=== PATIENT | female | born 1950 | race Hispanic/Latino ===

== ENCOUNTER 2018-12-09 19:40 | Emergency (ER) | payer OTHER ==
[2018-12-09] MEDS ORDERED: TETANUS/DIPHTHERIA TOXOID [ADULT] 0.5 ML VIAL IM ONE (19:51)
== END 2018-12-09 20:28 | disposition home or self-care (01) ==
LOC: EDH 19:40
DX: S91.312A Laceration without foreign body, left foot, initial encounter (principal); K21.9 Gastro-esophageal reflux disease without esophagitis; W25.XXXA Contact with sharp glass, initial encounter; Y93.01 Activity, walking, marching and hiking; Y92.89 Other specified places as the place of occurrence of the external cause; Y99.8 Other external cause status
CPT/HCPCS: 73630; 90471; 90714

== ENCOUNTER 2021-04-08 10:27 | Observation (INO) | payer OTHER ==
[2021-04-04 12:05] LABS: BASOPHILS % (AUTO) 0.8 % (0.0-5.0); EOSINOPHILS % (AUTO) 1.3 % (0.0-8.0); HEMATOCRIT 38.3 % (36-48); LYMPHOCYTES % (AUTO) 21.6 % (21.0-51.0); MEAN CORPUSCULAR HGB CONC 32.4 g/dL (32.0-36.0); MEAN CORPUSCULAR VOLUME 92.7 fL (79-99); NEUTROPHILS % (AUTO) 68.2 % (40.0-77.0); PLATELET COUNT (AUTO) 226 K/uL (130-400); RED BLOOD CELL COUNT(AUTO) 4.13 MIL/uL (4.00-5.50); RED CELL DISTRIBUTION WIDTH 12.3 % (11.0-15.5); WHITE BLOOD COUNT (AUTO) 7.6 K/uL (4.8-10.8)
[2021-04-04 12:17] LABS: CREATININE 0.6 mg/dL (0.5-1.5)
[2021-04-04 12:30] LABS: INR 0.96 (0.85-1.15); PROTHROMBIN TIME 10.5 SEC (9.6-11.6)
[2021-04-04 12:42] LABS: APPEARANCE,URINE CLOUDY (CLEAR); BILIRUBIN,URINE NEGATIVE (NEGATIVE); COLOR,URINE YELLOW (YELLOW); GLUCOSE, URINE (UA) NEGATIVE (NEGATIVE); KETONES,URINE NEGATIVE (NEGATIVE); LEUKOCYTE ESTERASE ,URINE SMALL (NEGATIVE); NITRATE,URINE POSITIVE (NEGATIVE); OCCULT BLOOD,URINE SMALL (NEGATIVE); PROTEIN,URINE NEGATIVE (NEGATIVE)
[2021-04-04 12:46] LABS: BACTERIA,URINE Many /HPF (None Seen); MUCUS,URINE Rare LPF (None Seen); RBC,URINE 0-1 /HPF (0-1); SQUAMOUS EPITHELIAL CELL,UR Few /HPF (0-2)
[2021-04-05 11:25] VITALS: BP 189/91
[2021-04-08] VITALS (18 sets, daily range): BP systolic 123–158; BP diastolic 56–84
[~2021-04-08] VITALS: Ht 167.6 cm; Wt 95.3 kg
[~2021-04-08 10:27] MED LIST: LISI5TAB21 PO; [UNRECOGNIZED DRUG - OTHER] PO
[2021-04-08] MEDS ORDERED: LACTATED RINGERS 1000ML 1,000 ML IV ONE (11:14)
[2021-04-08] MEDS: CEFAZOLIN SODIUM 1 GM VIAL IVP SCH ×3 (11:41→22:20)
[2021-04-08] MEDS: GENTAMICIN SULFATE 240 MG in 0.9%NACL 100ML 100 ML IV SCH (12:47)
[2021-04-08] MEDS ORDERED: TRANEXAMIC ACID 1000MG/10ML ONE ×3 (16:12→18:58)
[2021-04-08] MEDS ORDERED: CEFAZOLIN SODIUM 1 GM VIAL ONE (16:15)
[2021-04-08] MEDS ORDERED: SUCCINYLCHOLINE CHLORIDE 20 MG/ML 10 ML VIAL ONE (16:23)
[2021-04-08] MEDS ORDERED: MIDAZOLAM HCL 1 MG/ML 2ML VIAL ONE (16:23)
[2021-04-08] MEDS ORDERED: DEXAMETHASONE SOD PHOSPHATE 10MG/ML 1ML VIAL ONE ×2 (16:23→17:39)
[2021-04-08] MEDS ORDERED: LIDOCAINE PF 100MG/5ML (2%) SYRINGE 5ML ONE (16:23)
[2021-04-08] MEDS ORDERED: GLYCOPYRROLATE 1 MG/5 ML SYRINGE ONE (16:23)
[2021-04-08] MEDS ORDERED: ONDANSETRON 4MG INJ ONE (16:24)
[2021-04-08] MEDS ORDERED: NEOSTIGMINE 5MG/5ML SYR IV ONE (16:24)
[2021-04-08] MEDS ORDERED: FENTANYL CITRATE PF 50 MCG/1 ML 2ML VIAL ONE ×2 (16:24→19:01)
[2021-04-08] MEDS ORDERED: ROCURONIUM 10MG/1ML SYR 10 MG/ML ML ONE (16:24)
[2021-04-08] MEDS ORDERED: PROPOFOL 10 MG/ML 20ML VIAL IV ONE (16:24)
[2021-04-08] MEDS ORDERED: ROPIVACAINE 0.5% 5MG/ML 30ML IJ ONE (16:27)
[2021-04-08] MEDS ORDERED: MEPERIDINE-PF 25 MG/ML SYG ONE ×2 (16:37→19:41)
[2021-04-08] MEDS ORDERED: POTASSIUM CHLORIDE 10% ELIXIR 20 MEQ/15 ML UDCUP PO PRN (17:30)
[2021-04-08] MEDS ORDERED: DiphenhydrAMINE HCL 50 MG/ML VIAL IVP PRN (17:30)
[2021-04-08] MEDS ORDERED: KCL 20 MEQ ERTAB PO PRN (17:30)
[2021-04-08] MEDS ORDERED: KETOROLAC 15MG/ML VIAL (15MG/ML) IV PRN (17:30)
[2021-04-08] MEDS ORDERED: TEMAZEPAM 15 MG CAPSULE PO PRN (17:30)
[2021-04-08] MEDS ORDERED: CALCIUM CARB 500MG PO PRN (17:30)
[2021-04-08] MEDS ORDERED: POTASSIUM CHLORIDE 20MEQ/100ML 100 ML IV PRN (17:30)
[2021-04-08] MEDS: 0.9%NACL 1000ML 1,000 ML IV SCH (17:30)
[2021-04-08] MEDS ORDERED: OXYCODONE HCL 5 MG TAB PO PRN (17:30)
[2021-04-08] MEDS ORDERED: ONDANSETRON 4MG INJ IVP PRN (17:30)
[2021-04-08] MEDS ORDERED: FERROUS FUMARATE 324 MG TABLET PO PRN (17:30)
[2021-04-08] MEDS ORDERED: LIDOCAINE HCL-MPF 1% 2ML VIAL IV PRN (17:30)
[2021-04-08] MEDS ORDERED: EPHEDRINE SULFATE 50 MG/ML AMPULE ONE (17:42)
[2021-04-08] MEDS ORDERED: CEFAZOLIN SODIUM 1 GM VIAL IRRIG ONE (18:00)
[2021-04-08] MEDS: ACETAMINOPHEN 500 MG TABLET PO SCH (20:58)
[2021-04-08] MEDS: FAMOTIDINE 20MG TAB PO SCH (20:58)
[2021-04-08] MEDS: NITROFURANTOIN MONOHYD/M-CRYST 100 MG CAPSULE PO SCH (21:01)
[2021-04-08] MEDS: ASPIRIN 81 MG EC TAB PO SCH (21:02)
[2021-04-08] MEDS: PREGABALIN 25 MG CAP PO SCH (21:02)
[2021-04-08] MEDS: CELECOXIB 200 MG CAP PO SCH (21:02)
[2021-04-08] MEDS: OXYCODONE HCL 5 MG TAB PO PRN (21:02)
[2021-04-09] MEDS: ACETAMINOPHEN 500 MG TABLET PO SCH ×3 (01:30→17:42)
[2021-04-09] MEDS: 0.9%NACL 1000ML 1,000 ML IV SCH ×2 (03:54→13:30)
[2021-04-09 04:49] VITALS: BP 145/75
[2021-04-09 04:53] LABS: HEMATOCRIT 34.4 % (36-48); MEAN CORPUSCULAR HEMOGLOBIN 29.7 pg (27.0-33.0); MEAN CORPUSCULAR HGB CONC 32.8 g/dL (32.0-36.0); MEAN CORPUSCULAR VOLUME 90.5 fL (79-99); RED BLOOD CELL COUNT(AUTO) 3.8 MIL/uL (4.00-5.50); WHITE BLOOD COUNT (AUTO) 11.6 K/uL (4.8-10.8)
[2021-04-09 05:03] LABS: CREATININE 0.6 mg/dL (0.5-1.5)
[2021-04-09] MEDS: CEFAZOLIN SODIUM 1 GM VIAL IVP SCH (05:59)
[2021-04-09] MEDS: GENTAMICIN SULFATE 240 MG in 0.9%NACL 100ML 100 ML IV SCH (06:01)
[2021-04-09 08:07] VITALS: BP 160/70
[2021-04-09] MEDS: OXYCODONE HCL 5 MG TAB PO PRN ×2 (08:16→12:41)
[2021-04-09 10:42] VITALS: BP 146/79
[2021-04-09] MEDS: PREGABALIN 25 MG CAP PO SCH ×2 (11:25→21:45)
[2021-04-09] MEDS: ASPIRIN 81 MG EC TAB PO SCH ×2 (11:25→21:45)
[2021-04-09] MEDS: FAMOTIDINE 20MG TAB PO SCH ×2 (11:25→21:45)
[2021-04-09] MEDS: NITROFURANTOIN MONOHYD/M-CRYST 100 MG CAPSULE PO SCH ×2 (11:25→21:45)
[2021-04-09] MEDS: CELECOXIB 200 MG CAP PO SCH ×2 (11:26→21:45)
[2021-04-09] MEDS: POLYETHYLENE GLYCOL 3350 17 GM POWD.PACK PO SCH (11:26)
[2021-04-09 15:26] VITALS: BP 143/68
[2021-04-09] MEDS: TRAMADOL HCL 50 MG TABLET PO PRN (15:54)
[2021-04-09 20:32] VITALS: BP 110/52
[2021-04-09 23:24] VITALS: BP 120/55
[2021-04-10] MEDS: ACETAMINOPHEN 500 MG TABLET PO SCH ×3 (01:30→18:02)
[2021-04-10 04:22] VITALS: BP 104/53
[2021-04-10 07:30] VITALS: BP 121/37
[2021-04-10] MEDS: ASPIRIN 81 MG EC TAB PO SCH ×2 (08:32→19:57)
[2021-04-10] MEDS: NITROFURANTOIN MONOHYD/M-CRYST 100 MG CAPSULE PO SCH ×2 (08:32→19:57)
[2021-04-10] MEDS: CELECOXIB 200 MG CAP PO SCH ×2 (08:32→19:57)
[2021-04-10] MEDS: FAMOTIDINE 20MG TAB PO SCH ×2 (08:32→19:57)
[2021-04-10] MEDS: PREGABALIN 25 MG CAP PO SCH ×2 (08:32→19:57)
[2021-04-10] MEDS: POLYETHYLENE GLYCOL 3350 17 GM POWD.PACK PO SCH (08:40)
[2021-04-10 11:00] VITALS: BP 91/42
[2021-04-10 11:41] VITALS: BP 144/69
[2021-04-10] MEDS: TRAMADOL HCL 50 MG TABLET PO PRN (13:09)
[2021-04-10 16:00] VITALS: BP 127/55
[2021-04-10] MEDS ORDERED: HYDR-4060 PO (16:18)
[2021-04-10] MEDS ORDERED: AEC81 PO (16:18)
[2021-04-10] MEDS ORDERED: NITR100C4 PO (16:33)
[2021-04-10] MEDS: OXYCODONE HCL 5 MG TAB PO PRN (18:02)
[2021-04-11] MEDS ORDERED: BISACODYL 10 MG SUPP.RECT RC PRN (17:30)
== END 2021-04-10 22:30 ==
LOC: DAH 10:27 → DAHIP 17:30 → INTOOBSV 17:30 → DAH 17:30 → 4AH 19:52
PROVIDERS: ADMIT Orthopaedic Surgery; ATTEND Orthopaedic Surgery
DX: M17.11 Unilateral primary osteoarthritis, right knee (principal); Z20.822 Contact with and (suspected) exposure to COVID-19; M25.562 Pain in left knee; G89.29 Other chronic pain; N39.0 Urinary tract infection, site not specified; Z87.19 Personal history of other diseases of the digestive system; Z87.891 Personal history of nicotine dependence
CPT/HCPCS: 27447; 36415 ×2; 80048 ×2; 81001; 85025; 85027; 85610; 87077; 87088; 87186; 87635; 87641; 96365; 96366; 96375; 96376; 97039 ×4; 97116 ×4; 97161; 97530 ×4; A4215; A4221; A4222; A4223; A4600; A4649 ×5; A4663; A4930 ×2; A5120; A9272; C1776; C9803; G0378 ×50; G8978; G8979; G8980; G8981; G8982; G8983; J0330; J0690 ×5; J1100 ×2; J2001; J2175 ×2; J2250; J2405; J2704; J2710; J2795; J3010 ×2; J3490 ×4; J7030; J7120 ×2; J1580

== ENCOUNTER → 2022-03-12 | Outpatient (CLI) | payer OTHER ==
[~2022-03-12] MED LIST changes: +AEC81 PO; +HYDR-4060 PO; +NITR100C4 PO
== END | disposition home or self-care (01) ==
LOC: RAH 12:14
PROVIDERS: ATTEND Psychiatry & Neurology Psychiatry
DX: M47.816 Spondylosis without myelopathy or radiculopathy, lumbar region (principal); M47.817 Spondylosis without myelopathy or radiculopathy, lumbosacral region
CPT/HCPCS: 72148

== ENCOUNTER → 2024-04-07 | Outpatient (CLI) | payer OTHER ==
[2024-04-07] MEDS: REGADENOSON 0.4 MG/5 ML PF SYG IVP ONE (15:01)
--- NOTE | 2024-04-11 11:19 | HMCSR ---
APPROVED REPORT Height: 5 ft 6in Weight: 221 lbs TEST INDICATIONS Abnormal ECG The imaging protocol used to acquire images was Rest Tc-99m/stress Tc-99m 1 day Consent: The procedure was explained and understood by the patient. Informerd consent was witnessed pee colon [id number] First, low dose rest was performed then high dose stress. RESTING DATA: The resting ekg shows: NSR, inferolateral T wave inversions Rest SPECT myocardial perfusion imaging was performed in supine position 53 minutes following the int ravenous injection of 11 mCi of Tc-99 Sestamibi. Time of rest injection: 0912 Date: 04/07/2024 Time of rest imagin Date: 04/07/2024 PHARMACOLOGIC STRESS: Pharmacologic stress test was performed by injecting regadenoson 0.4 mg IV push followed by the intra venous injection of 32.2 mCi of Tc-99 Sestamibi. Time of stress injection: 1025 Date: 04/07/2024 Time of stress imagin Date: 04/07/2024 Heart Rate at time of stress injection: 78 bpm. Gated Stress SPECT was performed 82 minutes after stress injection. The images were gated to evaluate regional wall motion and calculate left ventricular ejection fracti on. STRESS DETAILS Reason for Termination: Infusion complete Stress Symptoms: Dyspnea, Flushing,Cough Max HR Achieved: 96 bpm % of APMHR Achieved: 65 Max Blood Pressure: 156/54 mmHg Stress ECG: NSR, inferolateral T wave inversions Arrhythmia: No. ST Change: No. Study quality was good. Lung uptake was Normal. Artifact: No artifact LEFT VENTRICLE Size: The left ventricular size is normal. Systolic Function:The left ventricular systolic function is normal. Wall Motion: No regional wall motion abnormalities noted. The left ventricular ejection fraction was calculated to be 79%.TID = . LV PERFUSION Small size mild reversibility at basal lateral segment. No transient ischemic dilation RV Size/Shape Not visualized. IMPRESSION Mildly abnormal pharmacologic nuclear stress test. Global LV Function: Normal Stress ECG Summary: Abnormal LV Perfusion Summary: Abnormal LV Viability Summary: Potentially viable myocardium Conclusion Small size mild reversibility at basal lateral segment. No ECG changes of ischemia however baseline inferolateral T wave inversions present Normal LV systolic function No TID
== END | disposition home or self-care (01) ==
LOC: SHCH 08:49
PROVIDERS: ATTEND Internal Medicine
DX: R94.31 Abnormal electrocardiogram [ECG] [EKG] (principal); R06.00 Dyspnea, unspecified
CPT/HCPCS: 78452; 93017; J2785; A9500 ×2

== ENCOUNTER → 2024-05-09 | Outpatient (CLI) | payer OTHER ==
[2024-05-09 11:44] LABS: ALBUMIN 2.8 g/dL (3.5-5.0); BILIRUBIN,TOTAL 0.4 mg/dL (0.2-1.0); CREATININE 0.7 mg/dL (0.5-1.0); POTASSIUM 3.7 mmol/L (3.5-5.1); TOTAL PROTEIN, SERUM 6.3 g/dL (6.0-8.3)
== END | disposition home or self-care (01) ==
LOC: LAB 10:29
PROVIDERS: ATTEND Internal Medicine
DX: R94.31 Abnormal electrocardiogram [ECG] [EKG] (principal)
CPT/HCPCS: 36415; 80053

== ENCOUNTER → 2024-05-19 | Outpatient (CLI) | payer OTHER ==
[~2024-05-19] MED LIST changes: +IOHEXOL-350 50ML VIAL IV ONE; +IOHEXOL-350 75 ML VIAL IV ONE; +metoPROLOL tartRATE 1 MG/ML 5ML VIAL IV ONE
--- NOTE | 2024-05-19 15:15 | HMCIMG ---
CT CARDIAC ANGIO W/CONT. CCTA REASON: Nonrheumatic aortic (valve) stenosis COMPARISON: None TECHNIQUE: Images are obtained through the heart in the axial plane before and during bolus IV contrast infusion, 100 cc Omnipaque 350. 2-D and 3-D multiplanar reconstruction images were then performed. The injection had to be repeated once due to motion artifact on the first sequence, total contrast volume was 200 cc. FINDINGS: This dictation is for the noncardiac findings only. Cardiac and coronary artery findings are reported separately. Visualized portions of the lungs are clear. There is normal-appearing pulmonary interstitium. There is no hilar or mediastinal lymphadenopathy. Chest wall structures appear unremarkable. IMPRESSION: 1. Unremarkable noncardiac portions of CT cardiac angiography.
== END | disposition home or self-care (01) ==
LOC: RAH 13:05
PROVIDERS: ATTEND Internal Medicine
DX: I35.0 Nonrheumatic aortic (valve) stenosis (principal); R94.31 Abnormal electrocardiogram [ECG] [EKG]
CPT/HCPCS: 75574; J3490; Q9967 ×2